=== PATIENT | female | born 1955 | race Caucasian/White ===

== ENCOUNTER 2016-10-15 21:43 | Emergency (ER) | payer MEDICAID ==
[~2016-10-15] VITALS: Ht 165.1 cm; Wt 89.8 kg
[~2016-10-15 21:43] MED LIST: /DULO30CA; /DULO30CA PO; /QUET10TA; /QUET25TA; /TRIM10TA; AMBI10TA; AMBI5TAB; ASPI81TA83; ATARAX PO; Cymbalta; IBUP800T; LEVO100T7; LEVO100T7 PO; QUET30TA; SERO200T; Seroquel; TRAZ50TA; TRIMETHOPRIM; VENTAER; ZYPR10TA; ZYPR5TAB; cymbalta
[2016-10-15] MEDS ORDERED: OMEP40CA2 PO (22:00)
[2016-10-15] MEDS ORDERED: METF500T4 PO (22:00)
[2016-10-15] MEDS ORDERED: FLUO-144 (22:00)
[2016-10-15] MEDS ORDERED: LOVA20TA2 PO (22:00)
[2016-10-16 00:13] LABS: MEAN CORPUSCULAR HEMOGLOBIN 30.5 pg (27.0-33.0); MEAN CORPUSCULAR HGB CONC 33.1 g/dl (32.0-36.5); MEAN CORPUSCULAR VOLUME 92.2 fl (80.0-96.0); RED CELL DISTRIBUTION WIDTH 12.9 % (11.5-14.5); WHITE BLOOD COUNT 7.2 K/mm3 (4.0-10.0)
[2016-10-16 00:49] LABS: METHADONE URINE NEGATIVE (NEGATIVE)
[2016-10-16 00:59] LABS: ALBUMIN 3.7 GM/DL (3.2-5.2); ALBUMIN/GLOBULIN RATIO 1.28 (1.00-1.93); ALKALINE PHOSPHATASE 148 U/L (45-117); ALT/SGPT 15 U/L (12-78); ANION GAP 4 MEQ/L (8-16); AST/SGOT 7 U/L (15-37); BILIRUBIN,DIRECT 0.2 MG/DL (0.0-0.2); BILIRUBIN,TOTAL 0.7 MG/DL (0.2-1.0); BLOOD UREA NITROGEN 15 MG/DL (7-18); CALCIUM LEVEL 8.8 MG/DL (8.8-10.2); CARBON DIOXIDE LEVEL 30 MEQ/L (21-32); CHLORIDE LEVEL 107 MEQ/L (98-107); CREATININE FOR GFR 0.79 MG/DL (0.55-1.02); GLOMERULAR FILTRATION RATE > 60.0 (>45); GLUCOSE, FASTING 129 MG/DL (80-110); POTASSIUM SERUM 3.8 MEQ/L (3.5-5.1); SODIUM LEVEL 141 MEQ/L (136-145); TOTAL PROTEIN 6.6 GM/DL (6.4-8.2)
[2016-10-16] MEDS ORDERED: LEVOTHYROXINE 0.15 MG TAB (150 MCG) PO ONE (06:00)
[2016-10-16 06:15] VITALS: BP 140/66
== END 2016-10-16 07:19 | disposition home or self-care (01) ==
LOC: M ED 21:43
DX: F43.0 Acute stress reaction (principal); F32.9 Major depressive disorder, single episode, unspecified; F41.9 Anxiety disorder, unspecified; E11.9 Type 2 diabetes mellitus without complications; E07.9 Disorder of thyroid, unspecified; Z79.899 Other long term (current) drug therapy; Z79.82 Long term (current) use of aspirin; Z79.84 Long term (current) use of oral hypoglycemic drugs; Z91.018 Allergy to other foods; Z91.041 Radiographic dye allergy status; Z88.8 Allergy status to other drugs, medicaments and biological substances; Z91.013 Allergy to seafood; Z91.012 Allergy to eggs
CPT/HCPCS: 36415; 80048; 80076; 80306; 84443; 85027; 99284; G0480

== ENCOUNTER 2016-11-02 10:59 | Emergency (ER) | payer MEDICAID ==
[~2016-11-02] VITALS: Ht 165.1 cm; Wt 87.2 kg
[~2016-11-02 10:59] MED LIST changes: +FLUO-144; +LOVA20TA2 PO; +METF500T4 PO; +OMEP40CA2 PO
[2016-11-02 12:30] LABS: MEAN CORPUSCULAR HEMOGLOBIN 31.3 pg (27.0-33.0); MEAN CORPUSCULAR HGB CONC 34.1 g/dl (32.0-36.5); RED CELL DISTRIBUTION WIDTH 13.1 % (11.5-14.5); WHITE BLOOD COUNT 4.9 K/mm3 (4.0-10.0)
[2016-11-02 12:32] LABS: METHADONE URINE NEGATIVE (NEGATIVE)
[2016-11-02 12:37] LABS: ALBUMIN 3.7 GM/DL (3.2-5.2); ALBUMIN/GLOBULIN RATIO 1.28 (1.00-1.93); ALKALINE PHOSPHATASE 131 U/L (45-117); ALT/SGPT 14 U/L (12-78); ANION GAP 5 MEQ/L (8-16); AST/SGOT 7 U/L (15-37); BILIRUBIN,DIRECT 0.2 MG/DL (0.0-0.2); BILIRUBIN,TOTAL 0.7 MG/DL (0.2-1.0); BLOOD UREA NITROGEN 9 MG/DL (7-18); CALCIUM LEVEL 8.6 MG/DL (8.8-10.2); CARBON DIOXIDE LEVEL 31 MEQ/L (21-32); CHLORIDE LEVEL 107 MEQ/L (98-107); CREATININE FOR GFR 0.79 MG/DL (0.55-1.02); GLOMERULAR FILTRATION RATE > 60.0 (>45); GLUCOSE, FASTING 91 MG/DL (80-110); POTASSIUM SERUM 4.3 MEQ/L (3.5-5.1); SODIUM LEVEL 143 MEQ/L (136-145); TOTAL PROTEIN 6.6 GM/DL (6.4-8.2)
[2016-11-02 16:14] VITALS: BP 127/66
== END 2016-11-02 16:16 | disposition home or self-care (01) ==
LOC: M ED 12:02
DX: F43.20 Adjustment disorder, unspecified (principal); E03.9 Hypothyroidism, unspecified; F20.9 Schizophrenia, unspecified; F60.9 Personality disorder, unspecified; I25.10 Atherosclerotic heart disease of native coronary artery without angina pectoris; I25.2 Old myocardial infarction; Z95.1 Presence of aortocoronary bypass graft; Z79.82 Long term (current) use of aspirin; Z79.899 Other long term (current) drug therapy; Z88.8 Allergy status to other drugs, medicaments and biological substances; Z91.013 Allergy to seafood; Z91.012 Allergy to eggs; Z91.018 Allergy to other foods; Z91.041 Radiographic dye allergy status
CPT/HCPCS: 36415; 80048; 80076; 80306; 84443; 85027; 99284; G0480

== ENCOUNTER 2016-11-05 14:02 | Emergency (ER) | payer MEDICAID ==
[~2016-11-05] VITALS: Ht 165.1 cm; Wt 87.2 kg
[2016-11-05 15:46] VITALS: BP 131/80
== END 2016-11-05 15:53 | disposition home or self-care (01) ==
LOC: M ED 15:29
DX: F41.9 Anxiety disorder, unspecified (principal); F33.9 Major depressive disorder, recurrent, unspecified; Z79.899 Other long term (current) drug therapy; Z79.82 Long term (current) use of aspirin; Z79.52 Long term (current) use of systemic steroids; Z91.041 Radiographic dye allergy status; Z91.018 Allergy to other foods; Z88.8 Allergy status to other drugs, medicaments and biological substances; Z91.013 Allergy to seafood; Z91.012 Allergy to eggs

== ENCOUNTER → 2017-02-04 | Outpatient (CLI) | payer MEDICAID ==
--- NOTE | 2017-02-04 13:54 | REP ---
LEFT HAND, FOUR VIEWS: HISTORY: Injury. There is no acute fracture or dislocation. The joint spaces are normal in appearance. IMPRESSION: There is no acute fracture or dislocation. Signed by Baldo Garcia MD 02/04/2017 01:56 P
== END ==
LOC: M LRY 12:52
PROVIDERS: ATTEND Physician Assistant
DX: M79.642 Pain in left hand (principal)

== ENCOUNTER 2017-05-24 17:45 | Emergency (ER) | payer OTHER, MEDICAID | END 2017-05-25 20:13 | disposition home or self-care (01) | LOC: M ED 05-25 20:13 | DX: Z04.1 Encounter for examination and observation following transport accident (principal); S13.4XXA Sprain of ligaments of cervical spine, initial encounter; T14.8XXA Other injury of unspecified body region, initial encounter; W22.11XA Striking against or struck by driver side automobile airbag, initial encounter; V49.40XA Driver injured in collision with unspecified motor vehicles in traffic accident, initial encounter; Y92.410 Unspecified street and highway as the place of occurrence of the external cause; Y93.89 Activity, other specified; Y99.8 Other external cause status; E11.9 Type 2 diabetes mellitus without complications; J45.909 Unspecified asthma, uncomplicated; K21.9 Gastro-esophageal reflux disease without esophagitis; E03.9 Hypothyroidism, unspecified; Z79.890 Hormone replacement therapy; Z79.82 Long term (current) use of aspirin; Z79.899 Other long term (current) drug therapy; Z91.018 Allergy to other foods; Z91.041 Radiographic dye allergy status; Z88.8 Allergy status to other drugs, medicaments and biological substances; Z91.013 Allergy to seafood; Z91.012 Allergy to eggs; Z87.891 Personal history of nicotine dependence | CPT/HCPCS: 71046 ==

== ENCOUNTER → 2017-12-12 | Outpatient (CLI) | payer MEDICAID | LOC: M RAD 17:21 | DX: K59.00 Constipation, unspecified (principal) | CPT/HCPCS: 74019 ==

== ENCOUNTER 2017-12-13 18:53 | Emergency (ER) | payer MEDICAID | END 2017-12-13 22:40 | disposition home or self-care (01) | LOC: M ED 18:53 | DX: H60.332 Swimmer's ear, left ear (principal); K59.00 Constipation, unspecified; I10 Essential (primary) hypertension; J45.909 Unspecified asthma, uncomplicated; K21.9 Gastro-esophageal reflux disease without esophagitis; E03.9 Hypothyroidism, unspecified; F32.9 Major depressive disorder, single episode, unspecified; Z91.018 Allergy to other foods; Z91.041 Radiographic dye allergy status; Z88.8 Allergy status to other drugs, medicaments and biological substances; Z91.013 Allergy to seafood; Z91.012 Allergy to eggs; Z79.899 Other long term (current) drug therapy | CPT/HCPCS: 99283 ==

== ENCOUNTER → 2018-12-19 | Outpatient (CLI) | payer MEDICAID ==
[~2018-12-19] MED LIST changes: -/DULO30CA; -/DULO30CA PO; -/QUET10TA; -/QUET25TA; -/TRIM10TA; +CYCL10TA PO; +CYMB1CAP5; +CYMB1CAP5 PO; +METF-791 PO; -METF500T4 PO; +NAPR-837 PO; +OFLOSO OTIC; -OMEP40CA2 PO; +OMEP40CA97 PO; +SERO1TAB; +SERO1TAB3; +[UNRECOGNIZED DRUG - CODE]
--- NOTE | 2018-12-23 19:14 | SLEEPHOME ---
DATE OF PROCEDURE: 12/19/2018 ORDERED BY: Mellissa Burgess Diagnostic home sleep testing was performed due to concern for the obstructive sleep apnea syndrome. For testing a nocturnal T3 respiratory monitoring device was used. Continuous record was made of pulse, oxygen saturation, airflow, chest, abdominal strain and body position. 10 hours and 59 minutes of data were reviewed. There were 8 hours and 28 minutes marked as time in bed. During the interval marked time in bed, there were 100 respiratory events identified of 10 seconds in duration or greater for a respiratory event index of 11.8. The events were primarily obstructive. There were 15 mixed and central apneas. Baseline pulse rate 68 beats per minute, pulse rate ranged 46-176. Baseline saturation 94%. Saturations were seen as low 65%, and the oxygen desaturation index was 2.4. Testing was performed in both the supine and nonsupine positions. IMPRESSION: Abnormal home sleep testing with repetitive respiratory events and oxygen desaturations to 65% with a respiratory event index of 11.8 is consistent with the obstructive sleep apnea syndrome. RECOMMENDATIONS: The patient should be encouraged to undergo a formal sleep evaluation.
== END ==
LOC: M SLEEP HO 10:03
PROVIDERS: ATTEND Nurse Practitioner Family
DX: R94.2 Abnormal results of pulmonary function studies (principal); E66.9 Obesity, unspecified

== ENCOUNTER → 2019-03-14 | Outpatient (CLI) | payer MEDICAID ==
--- NOTE | 2019-03-16 09:43 | REP ---
MRI lumbar spine: 03/14/2019. Location: Low back pain. Comparison: None. Technique: Multiplanar short and long TR sequences of the lumbar spine were obtained without IV Gadolinium. Findings: There is a chronic anterior compression deformity of L4 with approximately 50% loss of craniocaudal height anteriorly and mild retropulsion of fracture fragments into the spinal canal. There is a grade 1 anterolisthesis of L3 on L4. Endplate degenerative signal changes are present most pronounced at L5/S1 where there is significant disc space narrowing. No worrisome marrow signal is present. Mild dextroscoliosis of the lumbar spine is present with the convexity centered at L3. L/L2 and L2/L3: Unremarkable. L3/L4: Diffuse disc uncovering and significant bilateral facet arthropathy are present with severe bilateral recess narrowing. Moderate bilateral neural foraminal narrowing is present. L4/L5: There is no disc herniation or significant spinal canal / neural foraminal narrowing. L5/S1: Diffuse disc and spur complex and bilateral facet arthropathy are present with moderate bilateral recess narrowing. There is moderate to severe right and moderate left neural foraminal narrowing. Impression: Chronic anterior L4 compression deformity. Multilevel degenerative sequelae as described with the greatest spinal canal narrowing at L3/L4. Electronically Signed by Cory Baker DO 03/16/2019 09:34 A
== END ==
LOC: M RAD 10:52
PROVIDERS: ATTEND Nurse Practitioner Family
DX: M43.8X6 Other specified deforming dorsopathies, lumbar region (principal); M25.78 Osteophyte, vertebrae; M51.36 Other intervertebral disc degeneration, lumbar region; M54.16 Radiculopathy, lumbar region

== ENCOUNTER → 2019-11-24 | Outpatient (CLI) | payer MEDICAID ==
[~2019-11-24] MED LIST changes: +CYCL-707 PO; -CYCL10TA PO; -METF-791 PO; +METF-838 PO
--- NOTE | 2019-11-27 10:00 | REP ---
REASON FOR EXAM: Followup. COMPARISON: 03/14/2019 Preliminary report was given by [facility] neuroradiologist at the time the exam was performed. Vertebral body height and alignment is unchanged. No abnormal signal has developed in the imaged portion of the spinal cord. There is no marrow edema. The L4 compression deformity appears stable. At the L1-2 and L2-3 levels, there is no significant change from the prior exam. There is no disc herniation, foraminal narrowing, or central canal stenosis. At L3-4, the anterolisthesis at L3 on L4 may have increased slightly. The disc degeneration with broad-based annular bulge is increased somewhat. Degenerative facet joint changes are seen bilaterally. These chronic changes have also increased and the degree of central canal stenosis and foraminal narrowing appears to have increased. At L4-5, there has been no significant change. There is no acute disc herniation, foraminal narrowing or central canal stenosis. There is a broad-based annular bulge, status quo with degenerative facet joint changes and thickening of the ligamentum flava which appears stable. These factors cause mild central canal stenosis. The degree of foraminal narrowing particularly on the left is also unchanged. At L5-S1, there are no significant changes. Degenerative facet joint changes are seen bilaterally with thickening of the ligamentum flava along with a broad-based annular bulge, status quo. No acute changes have developed. IMPRESSION: Multilevel discogenic changes with progressive L3-4 changes as described above. Electronically Signed by Vargas Garcia DO 11/27/2019 11:26 A
== END ==
LOC: M RAD 11:11
PROVIDERS: ATTEND Nurse Practitioner Family
DX: M51.26 Other intervertebral disc displacement, lumbar region (principal)

== ENCOUNTER → 2020-01-01 | Outpatient (CLI) | payer MEDICAID ==
--- NOTE | 2020-01-22 14:27 | SLEEPHOME ---
DATE: 01/01/2020 ORDERED BY: Dr. Mellissa Wells Diagnostic home sleep testing was performed due to concern for the obstructive sleep apnea syndrome. For testing, a nocturnal T3 respiratory monitoring device was used. Continuous record was made of pulse, oxygen saturation, air flow, chest and abdominal strain, and body position. There was 9 hours and 59 minutes of data reviewed. There was 8 hours and 18 minutes marked as time in bed. During the interval marked time in bed, there were 120 respiratory events identified of 10 seconds in duration or greater for a respiratory event index of 14.5. The events were primarily obstructive. Eight mixed and central apneas were seen. Baseline pulse rate 58 beats per minute. Pulse rate ranged 50-141. Baseline saturation 92%. Saturations fell as low as 82%. Testing was performed in both the supine and non-supine positions. IMPRESSION: Abnormal home sleep testing with repetitive respiratory events and oxygen desaturations to 82% with a respiratory event index of 14.5 is consistent with the obstructive sleep apnea syndrome (G47.33). RECOMMENDATION: The patient should be encouraged to undergo formal sleep evaluation. [facility]
== END ==
LOC: M SLEEP HO 13:05
PROVIDERS: ATTEND Nurse Practitioner Family
DX: G47.33 Obstructive sleep apnea (adult) (pediatric) (principal)

== ENCOUNTER → 2020-07-27 | Outpatient (CLI) | payer MEDICARE, MEDICAID ==
--- NOTE | 2020-07-27 12:38 | REPVR ---
PROCEDURE INFORMATION: Exam: CT Lumbar Spine Without Contrast Exam date and time: 07/27/2020 12:17 PM Age: 64 years old Clinical indication: Low back pain; Additional info: Stenosis TECHNIQUE: Imaging protocol: Computed tomography images of the lumbar spine without contrast. Radiation optimization: All CT scans at this facility use at least one of these dose optimization techniques: automated exposure control; mA and/or kV adjustment per patient size (includes targeted exams where dose is matched to clinical indication); or iterative reconstruction. COMPARISON: MRI-Spine, L.S. without con 11/24/2019 11:28 AM FINDINGS: Vertebrae: There is a moderate L4 compression deformity with up to 50% loss of height, unchanged. There is approximately 6 mm of retropulsion of the posterior and superior margin into the canal. This indents the ventral thecal sac, contributing to severe canal stenosis. L1-L2: No significant disc protrusion. No severe spinal canal stenosis. No significant neural foraminal narrowing. L2-L3: There is shallow disc bulging. There is mild facet hypertrophy. There is mild canal stenosis. The neural foramina are patent. L3-L4: There is diffuse disc bulging/uncovering related to retropulsion. There is moderate facet hypertrophy. There is severe canal stenosis. There is moderate bilateral neural foraminal narrowing. L4-L5: There is shallow disc bulging. There is mild facet hypertrophy. There is mild canal stenosis. There is mild bilateral neural foraminal narrowing. L5-S1: There is a shallow disc osteophyte complex. There is moderate facet hypertrophy. There is severe right and moderate to severe left neural foraminal narrowing. Soft tissues: Unremarkable. IMPRESSION: 1. Moderate L4 compression deformity, similar as compared to preceding examination. Retropulsion of the posterior and superior margin contributes to focal severe canal stenosis. 2. Degenerative disc disease and spondylosis, most pronounced at L5/S1, where there is severe right and moderate to severe left neural foraminal narrowing. Electronically signed by: Barbra Carter On 07/27/2020 12:38:16 PM
--- NOTE | 2020-07-27 13:33 | REP ---
INDICATION: STENOSIS. COMPARISON: Comparison CT study lumbar spine July 27, 2020. Comparison MRI lumbar spine study November 24, 2019. Comparison MRI study is also reviewed from March 14, 2019.. TECHNIQUE: Seven views including lateral flexion extension views. FINDINGS: There is a moderate old wedge compression fracture deformity at the L4 vertebral body as seen on comparison MRI studies. There is approximately 50% loss of anterior vertebral body height. Large discogenic osteophyte is formed at the superior endplate of L4 unchanged. There is some mild spurring at the inferior endplate of L3. There is a grade 1 spondylolisthesis at this level with L3 anterior with respect L4 11 mm as seen on MR as well. Discrete spinal stenosis at L4 on the MR images. Lateral views done in flexion and extension show no instability with flexion extension range of motion although the range of motion is limited. There is degenerative disc disease with discogenic spurring at L4-5 and L5-S1 as well. No other spondylolisthesis or retrolisthesis is seen. No bony destructive lesion is seen. There is osteoarthritic facet disease bilaterally at L5-S1. Psoas margins are symmetric. Sacrum and SI joints are intact. IMPRESSION: Old wedge compression fracture deformity at L4 with 11 mm grade 1 spondylolisthesis of L3 anterior with respect L4. No subluxation or instability with flexion extension views. <Electronically signed by Rainer Sr > 07/27/20 [id number]
--- NOTE | 2020-07-27 13:35 | REP ---
INDICATION: STENOSIS. Spinal stenosis lumbar region. COMPARISON: Comparison radiographs are from December 12, 2017.. TECHNIQUE: AP view of the pelvis. Single-view. FINDINGS: Bony pelvic ring is intact. Sacrum and SI joints are intact. Symphysis pubis is normally aligned. There is chondrocalcinosis on the right and mild spurring of the hips bilaterally. There is moderate stool visible in the colon without distention. IMPRESSION: Mild bilateral hip osteoarthritis. Chondrocalcinosis on the right. <Electronically signed by Rainer Sr > 07/27/20 [id number]
== END ==
LOC: M RAD 12:03
PROVIDERS: ATTEND Neurological Surgery
DX: M48.061 Spinal stenosis, lumbar region without neurogenic claudication (principal); M48.062 Spinal stenosis, lumbar region with neurogenic claudication; M16.0 Bilateral primary osteoarthritis of hip

== ENCOUNTER → 2020-09-19 | Outpatient (CLI) | payer MEDICARE, MEDICAID ==
--- NOTE | 2020-09-19 14:14 | DEXAMM ---
INDICATION: SPINAL STENOSIS/NEUROGENIC CLAUDICATION. COMPARISON: None. TECHNIQUE: Bone density was measured using dual-energy x-ray absorptiometry (DEXA). FINDINGS: AP SPINE L1-L4 BMD 1.108 g/cm2 Young Adult T-Score -0.7 Age Matched Z-Score 0.9. LT FEMUR, TOTAL BMD 0.843 g/cm2 Young Adult T-Score -1.3 Age Matched Z-Score -0.1. LT NECK BMD 0.748 g/cm2 Young Adult T-Score -2.1 Age Matched Z-Score -0.6. RT FEMUR, TOTAL BMD 0.802 g/cm2 Young Adult T-Score -1.6 Age Matched Z-Score -0.4. RT NECK BMD 0.775 g/cm2 Young Adult T-Score -1.9 Age Matched Z-Score -0.4. IMPRESSION: There is normal bone density of the spine. There is low bone density of the left hip. There is low bone density of the right hip. FOLLOW-UP: Recommendation for the next bone density exam: 2 years. <Electronically signed by Brendan Lai > 09/19/20 [id number]
== END ==
LOC: M WHC 12:56
PROVIDERS: ATTEND Physician Assistant
DX: M85.88 Other specified disorders of bone density and structure, other site (principal)

== ENCOUNTER 2022-08-31 17:39 | Emergency (ER) | payer MEDICARE, MEDICAID ==
[~2022-08-31] VITALS: Ht 162.6 cm; Wt 90.9 kg
[~2022-08-31 17:39] MED LIST changes: +OMEP40CA4 PO; -OMEP40CA97 PO
[2022-08-31 19:09] LABS: HEMOGLOBIN 11.6 g/dl (12.0-15.5); MEAN CORPUSCULAR HEMOGLOBIN 31.7 pg (27.0-33.0); MEAN CORPUSCULAR HGB CONC 32.2 g/dl (32.0-36.5); MEAN CORPUSCULAR VOLUME 98.4 fl (80.0-96.0); PLATELET COUNT, AUTOMATED 179 10^3/uL (150-450); RED BLOOD COUNT 3.66 10^6/uL (4.00-5.40); WHITE BLOOD COUNT 7.7 10^3/uL (4.0-10.0)
[2022-08-31 19:38] LABS: ETHYL ALCOHOL (ETHANOL) < 0.003 % (0.000-0.010)
[2022-08-31 19:39] LABS: ACETAMINOPHEN LEVEL < 2.0 UG/ML (10.0-20.0)
[2022-08-31 19:40] LABS: ALBUMIN 3.5 G/DL (3.2-5.2); ALKALINE PHOSPHATASE 148 U/L (46-116); ALT/SGPT 11 U/L (7.0-40); AST/SGOT 11 U/L (<34); BILIRUBIN,DIRECT 0.2 MG/DL (<0.4); BILIRUBIN,TOTAL 0.4 MG/DL (0.3-1.2); BLOOD UREA NITROGEN 14 MG/DL (9-23); CALCIUM LEVEL 8.5 MG/DL (8.3-10.6); CARBON DIOXIDE LEVEL 30 MMOL/L (20-31); CHLORIDE LEVEL 106 MMOL/L (98-107); CREATININE FOR GFR 0.97 MG/DL (0.55-1.30); GLOMERULAR FILTRATION RATE > 60.0 (>45); GLUCOSE, FASTING 124 MG/DL (74-106); POTASSIUM SERUM 4.1 MMOL/L (3.5-5.1); SALICYLATE LEVEL < 3.0 MG/DL (<30); SODIUM LEVEL 141 MMOL/L (136-145); TOTAL PROTEIN 5.9 G/DL (5.7-8.2)
[2022-08-31 19:43] LABS: THYROID STIMULATING HORMONE 13.996 uIU/ML (0.55-4.78)
[2022-08-31 19:57] LABS: AMPHETAMINES LEVEL URINE NEGATIVE (NEGATIVE); BARBITURATES URINE NEGATIVE (NEGATIVE); BENZODIAZEPINES URINE NEGATIVE (NEGATIVE); CANNABINOIDS URINE NEGATIVE (NEGATIVE); COCAINE METABOLITE URINE NEGATIVE (NEGATIVE); METHADONE URINE NEGATIVE (NEGATIVE); OPIATES URINE NEGATIVE (NEGATIVE); PHENCYCLIDINE URINE NEGATIVE (NEGATIVE)
[2022-08-31 21:01] VITALS: BP 166/77
[2022-08-31] MEDS ORDERED: LEVO112T2 PO (22:36)
[2022-08-31] MEDS ORDERED: SIMV40TA20 PO (22:36)
[2022-08-31] MEDS ORDERED: ARIP1TAB44 PO (22:36)
[2022-08-31] MEDS ORDERED: HYDR-643 PO (22:36)
[2022-08-31] MEDS ORDERED: ERGO500029 PO (22:36)
[2022-08-31] MEDS ORDERED: CETI-24 PO (22:36)
[2022-08-31] MEDS ORDERED: LORA-674 PO (22:36)
[2022-08-31] MEDS ORDERED: DOXE10CA PO (22:36)
[2022-08-31] MEDS ORDERED: PRAZ1CAP PO (22:36)
[2022-08-31] MEDS ORDERED: GABA-283 PO ×2 (23:04→23:06)
[2022-08-31] MEDS ORDERED: ALBU8.5H INH (23:04)
[2022-08-31] MEDS ORDERED: DULO1CAP6 PO (23:04)
[2022-08-31] MEDS ORDERED: METF-838 PO (23:04)
[2022-08-31] MEDS ORDERED: RAMI1CAP21 PO (23:04)
[2022-08-31] MEDS ORDERED: MELO15TA28 PO (23:04)
[2022-08-31] MEDS ORDERED: MONT10TA97 PO (23:04)
[2022-08-31] MEDS ORDERED: ARIP10TA32 PO (23:04)
[2022-08-31] MEDS ORDERED: CALC-364 PO (23:04)
[2022-08-31] MEDS ORDERED: HOME MED LIST COMPLETE! XX SCH (23:10)
== END 2022-08-31 22:53 | disposition home or self-care (01) ==
LOC: M ED 17:39
DX: F32.A Depression, unspecified (principal); E03.9 Hypothyroidism, unspecified; E78.5 Hyperlipidemia, unspecified; Z91.014 Allergy to mammalian meats; Z79.899 Other long term (current) drug therapy

== ENCOUNTER 2024-05-20 11:24 | Day surgery (SDC) | payer OTHER, MEDICAID ==
[~2024-05-20] VITALS: Ht 165.1 cm; Wt 93.9 kg
[~2024-05-20 11:24] MED LIST changes: +ALBU8.5H INH; +ARIP10TA63 PO; +ARIP30TA38 PO; +CALC-364 PO; +CETI-24 PO; +DOXE10CA PO; +DULO1CAP6 PO; +ERGO500029 PO; +GABA-284 PO; +HYDR-643 PO; +LEVO112T2 PO; +LEVO125T4 PO; +LORA-1041 PO; +MELO15TA28 PO; +MONT10TA97 PO; +PHENYLEPHRINE 10% OPHTH SOL 5ML OD PRN; +PRAZ1CAP PO; +RAMI1.258 PO; +SIMV40TA20 PO
[2024-05-20] MEDS ORDERED: fentaNYL 100 MCG/2 ML INJECTION As Ordered ONE (13:37)
[2024-05-20] MEDS ORDERED: MIDAZOLAM INJ 2MG/2ML VIAL As Ordered ONE (13:37)
[2024-05-20] MEDS: OFLOXACIN 0.3 % (OCUFLOX) OPTH SOL 5ML OD ONE (13:46)
[2024-05-20] MEDS: LIDOCAINE 3.5 % 1ML OPHTH TOPICAL GEL OU ONE (13:46)
[2024-05-20] MEDS: CYCLOPENTOLATE 1% OPHTH SOLN 2ML BTL OD SCH (13:47)
[2024-05-20] MEDS: TROPICAMIDE 1% OPHTH SOLN 15ML OD SCH (13:47)
[2024-05-20] MEDS: PHENYLEPHRINE 2.5% OPHTH SOL 2ML OD SCH (13:47)
[2024-05-20] MEDS: BSS IRRIG/VANCO(10MG)/TOBRA(5MG)/EPINEPH(1:1000-0.5CC)500ML BAG-ORONLY As Ordered ONE (14:07)
[2024-05-20] MEDS: LIDOCAINE 1% SDV 5ML VIAL As Ordered ONE (14:07)
[2024-05-20] MEDS: CEFUROXIME 1MG/0.1ML INTRACAMERAL INJ As Ordered ONE (14:10)
[2024-05-20 14:25] VITALS: BP 160/67; TEMP 97.2; O2SAT 94
== END 2024-05-20 14:45 | disposition home or self-care (01) ==
LOC: M SDC 11:24
PROVIDERS: ATTEND Ophthalmology
DX: H25.11 Age-related nuclear cataract, right eye (principal); I10 Essential (primary) hypertension; E03.9 Hypothyroidism, unspecified; J45.909 Unspecified asthma, uncomplicated; I25.2 Old myocardial infarction; Z79.84 Long term (current) use of oral hypoglycemic drugs; Z79.890 Hormone replacement therapy; Z90.710 Acquired absence of both cervix and uterus; Z90.89 Acquired absence of other organs; Z88.8 Allergy status to other drugs, medicaments and biological substances; Z91.041 Radiographic dye allergy status; Z91.012 Allergy to eggs; Z91.013 Allergy to seafood; Z91.018 Allergy to other foods
CPT/HCPCS: 66984; J0697; J2250; J3010; V2632

== ENCOUNTER 2024-09-23 05:56 | Day surgery (SDC) | payer OTHER, MEDICAID ==
[~2024-09-23] VITALS: Ht 165.1 cm; Wt 93.4 kg
[~2024-09-23 05:56] MED LIST changes: +BUPR150T12 PO; +CITA20TA6 PO; +LEVO137T2 PO; -PHENYLEPHRINE 10% OPHTH SOL 5ML OD PRN
[2024-09-23] MEDS ORDERED: PHENYLEPHRINE 10% OPHTH SOL 5ML OS PRN (06:00)
[2024-09-23] MEDS: CYCLOPENTOLATE 1% OPHTH SOLN 2ML BTL OS SCH (06:26)
[2024-09-23] MEDS: PHENYLEPHRINE 2.5% OPHTH SOL 2ML OS SCH (06:26)
[2024-09-23] MEDS: OFLOXACIN 0.3 % (OCUFLOX) OPTH SOL 5ML OS ONE (06:26)
[2024-09-23] MEDS: LIDOCAINE 3.5 % 1ML OPHTH TOPICAL GEL OU ONE (06:26)
[2024-09-23] MEDS: TROPICAMIDE 1% OPHTH SOLN 15ML OS SCH (06:26)
[2024-09-23] MEDS ORDERED: MIDAZOLAM INJ 2MG/2ML VIAL As Ordered ONE (06:52)
[2024-09-23] MEDS ORDERED: fentaNYL 100 MCG/2 ML INJECTION As Ordered ONE (06:52)
[2024-09-23] MEDS: LIDOCAINE 1% SDV 5ML VIAL As Ordered ONE (07:56)
[2024-09-23] MEDS: CEFUROXIME 1MG/0.1ML INTRACAMERAL INJ As Ordered ONE (08:00)
[2024-09-23 08:14] VITALS: BP 132/75; TEMP 97.9; O2SAT 95
== END 2024-09-23 08:31 | disposition home or self-care (01) ==
LOC: M SDC 05:56
PROVIDERS: ATTEND Ophthalmology
DX: H25.12 Age-related nuclear cataract, left eye (principal); H57.03 Miosis; I25.2 Old myocardial infarction; E11.9 Type 2 diabetes mellitus without complications; Z88.8 Allergy status to other drugs, medicaments and biological substances; Z91.041 Radiographic dye allergy status; Z91.012 Allergy to eggs; Z91.013 Allergy to seafood; Z91.018 Allergy to other foods; Z79.899 Other long term (current) drug therapy; Z98.41 Cataract extraction status, right eye
CPT/HCPCS: 66982; J0697; J2250; J3010; V2632